=== PATIENT | female | born 1945 | race Two or more races ===

== ENCOUNTER 2022-11-09 20:36 | Emergency (ER) | payer OTHER, MEDICAID ==
[~2022-11-09] VITALS: Ht 149.9 cm; Wt 85.0 kg
[2022-11-09] MEDS ORDERED: AMOXICILLIN/CLAVUL 875 MG TAB PO ONE (23:00)
[2022-11-09] MEDS ORDERED: TETANUS-DIPTH-ACEL PERTUSSIS 0.5ML SYR Tdap IM ONE (23:00)
[2022-11-10] MEDS ORDERED: AMOX-277 PO (00:13)
[2022-11-10 01:21] VITALS: BP 138/72
== END 2022-11-10 01:20 | disposition home or self-care (01) ==
LOC: ER 20:36
DX: S91.151A Open bite of right great toe without damage to nail, initial encounter (principal); S91.154A Open bite of right lesser toe(s) without damage to nail, initial encounter; W55.01XA Bitten by cat, initial encounter; Y93.89 Activity, other specified; Y92.89 Other specified places as the place of occurrence of the external cause; Y99.8 Other external cause status
CPT/HCPCS: 90471; 90715